=== PATIENT | male | born 1975 | race African-American/Black ===

== ENCOUNTER 2019-12-22 05:47 | Emergency (ER) | payer BC ==
[2019-12-22 06:27] LABS: Hemoglobin 12.4 g/dL (14.0-18.0); Mean Corpuscular HGB CONC 30.8 g/dL (32.0-36.0); Mean Corpuscular Hemoglobin 24.2 pg (27.0-31.0); Mean Corpuscular Volume 78.4 fL (78.0-98.0); Mean Platelet Volume 10.3 fL (7.4-10.4); Platelet Count 144 thou/uL (130-400); RBC Distribution Width 14.3 % (11.5-14.5); Red Blood Cell (RBC) Count 5.13 mill/uL (4.70-6.10)
[2019-12-22 06:42] LABS: ALT (SGPT) 15 U/L (8-55); AST (SGOT) 13 U/L (5-34); Albumin 3.6 g/dL (3.5-5.0); Alkaline Phosphatase 59 U/L (40-110); Anion Gap 9 mmol/L (10-20); BUN (Urea Nitrogen) 14 mg/dL (8.9-20.6); Bilirubin, Total 0.2 mg/dL (0.2-1.2); CK (CPK) 156 U/L (30-200); Calc. Creatinine Clearance 0 mL/min (70-130); Calcium 8.1 mg/dL (7.8-10.44); Carbon Dioxide 27 mmol/L (22-29); Chloride 107 mmol/L (98-107); Estimated GFR-MDRD 74; Globulin 2.5 g/dL (2.4-3.5); Glucose 97 mg/dL (70-105); Potassium 3.9 mmol/L (3.5-5.1); Protein, Total 6.1 g/dL (6.0-8.3); Sodium 139 mmol/L (136-145)
[2019-12-22 08:05] LABS: Band 1 % (5-11); Eosinophils 9 % (0-10); Lymphocytes 53 % (21-51); MDiff Complete? YES; Monocytes 3 % (0-10); Neutrophil 34 % (42-75)
--- NOTE | 2019-12-22 08:24 | RAD ---
SINGLE VIEW CHEST: HISTORY: Lightheadedness and fall. Syncope. COMPARISON: None. FINDINGS/IMPRESSION: Single view of the chest show normal sized cardiomediastinal silhouette. There is no evidence of cons olidation, mass, or pleural effusion. The bones are unremarkable. IMPRESSION: No evidence of acute cardiopulmonary disease. POS: [facility]
== END 2019-12-22 06:56 | disposition home or self-care (01) ==
LOC: ERS 05:47
DX: R55 Syncope and collapse (principal)
CPT/HCPCS: 36415; 71045; 80053; 82550; 85025; 93005